=== PATIENT | female | born 1970 ===

== ENCOUNTER 2021-09-17 17:06 | Emergency (ER) | payer OTHER, SELFPAY ==
[2021-09-17 17:12] VITALS: BP 131/87; PULSE 61; RESP 16; TEMP 37.1; O2SAT 98; BMI 26.1
--- NOTE | 2021-09-17 17:33 | XRR_ITS ---
PROCEDURE INFORMATION: Exam: XR Chest Exam date and time: 09/17/2021 5:55 PM Age: 51 years old Clinical indication: Chest wall pain; Additional info: Chest pain TECHNIQUE: Imaging protocol: XR of the chest. Views: 1 view. COMPARISON: No relevant prior studies available. FINDINGS: Lungs: Unremarkable. No consolidation. Pleural spaces: Unremarkable. No pleural effusion. No pneumothorax. Heart/Mediastinum: Unremarkable. No cardiomegaly. Bones/joints: Unremarkable. XR/XR chest 1V portable [id number] IMPRESSION: No acute findings.
--- NOTE | 2021-09-17 17:33 | ECG_ITS ---
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 Measurements Intervals [place] Rate: 58 P: 49 [place]: 159 QRS: 66 QRSD: 133 T: 43 QT: 447 QTc: 441 Interpretive Statements SINUS BRADYCARDIA RIGHT BUNDLE BRANCH BLOCK [120+ ms QRS DURATION, UPRIGHT V1, 40+ ms S IN I/aVL/V4/V5/V6] No previous ECG available for comparison Electronically Signed On 09-17-2021 20:16:05 CDT by Anne Marie Araujo M.D. [id number] f
[2021-09-17] MEDS: ondansetron 2 mg/ML SDV 2 mL 4 MG IVP (17:52)
[2021-09-17] MEDS: sodium chloride 0.9% 1,000 ML 999 ML IV (17:52)
[2021-09-17 18:11] LABS: Add Urine Microscopic? NO; Charge for UA Resulting for Rev
[2021-09-17 18:27] LABS: Basophils # 0.1 10^3/uL (0.0-0.1); Basophils % 0.7 %; Eosinophils # 0.3 10^3/uL (0.0-0.8); Eosinophils % 4.1 %; Hematocrit 36.7 % (37.0-47.0); Hemoglobin 12.6 g/dL (11.5-15.3); Lymphocytes # 4.1 10^3/uL (0.8-4.8); Lymphocytes % 48.9 %; Mean Corpuscular HGB Conc 34.3 g/dL (30.0-36.0); Mean Corpuscular Volume 90.2 fl (81-99); Monocytes # 0.7 10^3/uL (0.2-0.9); Monocytes % 7.8 %; Neutrophils # 3.18 10^3/uL (1.8-7.7); Neutrophils % 38.4 %; Nucleated Red Blood Cells % 0 %; Platelet Count 236 10^3/cmm (130-400); Red Blood Count 4.07 10^6/uL (4.1-5.3); Red Cell Distribution Width 12.4 % (12.1-15.1); White Blood Count 8.3 10^3/uL (4.0-10.0)
[2021-09-17 18:31] LABS: Glucose Urine UA Norm (Normal); Ketones Urine Negative (Negative); Protein Urine Neg (Negative); Urine Appearance Clear (CLEAR); Urine Color Yellow (Yellow); pH Urine 5 (5-7)
[2021-09-17 18:32] LABS: Bilirubin Urine Neg (Negative); Blood Urine Neg (Negative); Leukocyte Esterase Urine Negative (Negative); Nitrate Urine Negative (Negative); Urobilinogen Urine Norm (Negative)
[2021-09-17 18:51] LABS: Troponin(5th) Baseline 6 ng/L (0-10)
[2021-09-17 18:58] LABS: Alanine Aminotransferase 18 U/L (0-33); Albumin Level 4.4 g/dL (3.5-5.2); Alkaline Phosphatase 90 IU/L (35-105); Anion Gap 12.4 (5-19); Aspartate Amino Transferase 19 U/L (0-32); Blood Urea Nitrogen 16 mg/dL (6-20); Carbon Dioxide 25 mmol/L (22-29); Chloride 104 mmol/L (98-107); Globulin 3.2 g/dL (1.3-4.6); Glucose 96 mg/dL (65-115); NT Pro B Type Natriuretic Pept 19 pg/mL (0-125); Osmolality Calculated 287 mOsm/kg (285-295); Potassium 3.4 mmol/L (3.5-5.1); Sodium 138 mmol/L (136-145); Total Bilirubin 0.3 mg/dL (0.15-1.2); Total Protein 7.6 g/dL (6.6-8.7)
[2021-09-17 19:02] LABS: INR 1.07 (0.8-1.2); Partial Thromboplastin Time 29.1 SECONDS (23.9-36.7)
--- NOTE | 2021-09-17 19:33 | ECG_ITS ---
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 Measurements Intervals [place] Rate: 55 P: 51 [place]: 163 QRS: 61 QRSD: 118 T: 38 QT: 461 QTc: 442 Interpretive Statements SINUS BRADYCARDIA INCOMPLETE RIGHT BUNDLE BRANCH BLOCK [90+ ms QRS DURATION, TERMINAL R IN V1/V2, 40+ ms S IN I/aVL/V4/V5/V6] NONSPECIFIC T-WAVE ABNORMALITY Compared to ECG 09/17/2021 17:14:58 Incomplete right bundle-branch block now present T-wave abnormality now present Right bundle-branch block no longer present Electronically Signed On 09-17-2021 20:23:35 CDT by Anne Marie Araujo M.D. [id number]
--- NOTE | 2021-09-17 19:38 | ED_ITS ---
HPI - Chest Pain General: Chief Complaint: Chest Pain Stated Complaint: chest pressure/pain Time Seen by Provider: 09/17/21 17:09 History of Present Illness: 51-year-old female presents emergency department chief complaint of having chest pain and heaviness at work patient does not re call having any known history of any underlying heart issues. She reports she was at work in which she developed chest pressure and her heart beat being out of sorts patient reports is the first time this is ever happened she does not recall any known cardiac issues however reports they do run in her family. Currently the patient reports is not having any chest pain shortness of breath or palpitations. Associated symptoms: Deny abdominal pain, dyspnea, fever(s), nausea or vomiting Review of Systems General: Reports: 10 or more systems reviewed and unremarkable except in HPI and below Const: Denies: fever(s), chills, fatigue or malaise Eyes: Denies: change in vision or blurry vision Card: Reports: chest pain Resp: Denies: dyspnea or productive cough GI: Denies: abdominal pain, nausea or vomiting : Denies: flank pain Musc: Denies: extremity pain or extremity swelling Skin/Breast: Denies: rash or pruritus Neuro: Denies: headache(s) Psych: Denies: anxiety or depression Rui/Lymph: Denies: easy bleeding All/Imm: Denies: urticaria, throat swelling or facial swelling PFSH ED PFSH: Social History Smoking and tobacco status: never smoked Alcohol intake: never Physical Exam Const: COMMON NORMALS: no acute distress, patient oriented x3 and healthy appearing HENMT: COMMON NORMALS: normocephalic and atraumatic HEAD & SCALP: normocephalic and atraumatic Eye: COMMON NORMALS: Equal, round and reactive pupils present and EOMs intact bilaterally PUPIL: Yes Equal, round and reactive pupils present Neck/C-Spine: COMMON NORMALS: full ROM, supple and no JVD Lymph: LYMPHATIC: no lymphadenopathy noted Chest: COMMONS NORMALS: normal inspection of the chest and normal palpation of entire chest wall Resp: COMMON NORMALS: normal respiratory effort, No retractions and clear to auscultation bilaterally EFFORT & INSPECTION: Yes able to speak in complete sentences and Yes symmetric chest movement AUSCULTATION: clear to auscultation bilaterally Cardio: COMMON NORMALS: no JVD, regular rate and regular rhythm RATE: regular rate RHYTHM: regular rhythm GI: COMMON NORMALS: Normal to inspection, nondistended, normoactive bowel sounds present, Soft to palpation and non-tender INSPECTION: Yes normal to inspection PALPATION: Yes Soft to palpation : COMMON NORMALS: Yes no CVA tenderness BLADDER/KIDNEY EXAM: Yes no CVA tenderness Back/Pelvis: COMMON NORMALS: no CVA tenderness Extremity: COMMON NORMALS: normal to inspection and full ROM Neuro: COMMON NORMALS: patient oriented x3, CN's II-XII intact bilaterally, moves all extremities and no focal motor deficits Psych: COMMON NORMALS: mental status grossly normal, Normal thought process present, cooperative and normal affect THOUGHT PROCESS: Normal thought process present Skin: COMMON NORMALS: no rashes or lesions noted GENERAL SKIN EXAM: no rashes or lesions noted Course Vital Signs: Vital signs: Vital Signs Temperature 98.8 F 09/17/21 17:12 Pulse Rate 56 L 09/17/21 19:59 Respiratory Rate 16 09/17/21 19:59 Blood Pressure 128/83 09/17/21 19:59 Pulse Oximetry 98 09/17/21 19:59 MDM - Chest Pain Medical Decision Making Due to the patient's symptoms and condition lab work and imaging will be obtained we will continue to follow. Patient's lab work and imaging came back reassuring patient remained asymptomatic throughout her stay in the emergency department patient was discharged home advised further follow-up with primary care in 2 to 3 days which is advised to return in the interim if any of her symptoms persist or worse. Lab Data : 09/17/21 17:30 09/17/21 17:30 Radiology Impressions Chest X-Ray 09/17/21 17:33 IMPRESSION: No acute findings. Laboratory Results WBC 8.3 10^3/uL (4.0-10.0) 09/17/21 17:30 RBC 4.07 10^6/uL (4.1-5.3) L 09/17/21 17:30 Hgb 12.6 g/dL (11.5-15.3) 09/17/21 17:30 Hct 36.7 % (37.0-47.0) L 09/17/21 17:30 MCV 90.2 fl (81-99) 09/17/21 17:30 MCH 31.0 pg (28.0-34.0) 09/17/21 17: MCHC 34.3 g/dL (30.0-36.0) 09/17/21 17: RDW 12.4 % (12.1-15.1) 09/17/21 17: Plt Count 236 10^3/cmm (130-400) 09/17/21 17: MPV 11.0 fL (7.4-10.4) H 09/17/21 17:30 Neut % (Auto) 38.4 % 09/17/21 17: Lymph % (Auto) 48.9 % 09/17/21 17: Graves % (Auto) 7.8 % 09/17/21 17: Eos % (Auto) 4.1 % 09/17/21 17: Baso % (Auto) 0.7 % 09/17/21 17: Neut # (Auto) 3.18 10^3/uL (1.8-7.7) 09/17/21 17: Lymph # (Auto) 4.1 10^3/uL (0.8-4.8) 09/17/21 17:30 Graves # (Auto) 0.7 10^3/uL (0.2-0.9) 09/17/21 17: Eos # (Auto) 0.3 10^3/uL (0.0-0.8) 09/17/21 17: Baso # (Auto) 0.1 10^3/uL (0.0-0.1) 09/17/21: Nucleated RBC % (auto) 0 % 09/17/21 17: Nucleated RBCs # 0.0 /100WBC 09/17/21 17: PT 14.20 SECONDS (12.1-14.9) 09/17/21: INR 1.07 (0.8-1.2) 09/17/21 17: APTT 29.1 SECONDS (23.9-36.7) 09/17/21 17:30 Sodium 138 mmol/L (136-145) 09/17/21 17: Potassium 3.4 mmol/L (3.5-5.1) L 09/17/21:30 Chloride 104 mmol/L (98-107) 09/17/21 17:30 Carbon Dioxide 25 mmol/L (22-29) 09/17/21 17:30 Anion Gap 12.4 (5-19) 09/17/21 17:30 BUN 16 mg/dL (6-20) 09/17/21 17:30 Creatinine 0.8 mg/dL (0.5-0.9) 09/17/21 17:30 GFR Calculation 75.0 mL/min (90-130) L 09/17/21 17:30 Glucose 96 mg/dL (65-115) 09/17/21 17:30 Calculated Osmolality 287 mOsm/kg (285-295) 09/17/21 17:30 Calcium 9.0 mg/dL (8.5-10.5) 09/17/21 17:30 Total Bilirubin 0.3 mg/dL (0.15-1.2) 09/17/21 17:30 AST 19 U/L (0-32) 09/17/21 17:30 ALT 18 U/L (0-33) 09/17/21 17:30 Alkaline Phosphatase 90 IU/L (35-105) 09/17/21 17:30 Troponin T Baseline 6 ng/L (0-10) 09/17/21 17:30 Troponin T 120 Minute 6.00 ng/L (0-10) 09/17/21 19:16 Delta Troponin T 0 ABS# (0-10) 09/17/21 19:16 NT-Pro-B Natriuret Pep 19 pg/mL (0-125) 09/17/21 17:30 Total Protein 7.6 g/dL (6.6-8.7) 09/17/21 17:30 Albumin 4.4 g/dL (3.5-5.2) 09/17/21 17:30 Globulin 3.2 g/dL (1.3-4.6) 09/17/21 17:30 Urine Color Yellow (Yellow) 09/17/21 17:55 Urine Appearance Clear (CLEAR) 09/17/21 17:55 Urine pH 5 (5-7) 09/17/21 17:55 Ur Specific [place] 1.010 (1.005-1.030) 09/17/21 17:55 Urine Protein Neg (Negative) 09/17/21 17:55 Urine Glucose (UA) Norm (Normal) 09/17/21 17:55 Urine Ketones Negative (Negative) 09/17/21 17:55 Urine Blood Neg (Negative) 09/17/21 17:55 Urine Nitrate Negative (Negative) 09/17/21 17:55 Urine Bilirubin Neg (Negative) 09/17/21 17:55 Urine Urobilinogen Norm mg/dL (Negative) 09/17/21 17:55 Ur Leukocyte Esterase Negative (Negative) 09/17/21 17:55 Discharge Plan Discharge Patient Disposition: Home Clinical Impression: Atypical chest pain Condition: Stable Prescriptions: No Action sulfamethoxazole-trimethoprim [Bactrim DS] 800-160 mg tablet 1 tab PO BID 7 Days Qty: 14 0RF Discharge Orders: Discharge ED (Routine); Ordered 09/17/21 Ordered By: Henry Izaguirre Referrals: Serafin Harrington DO [Staff Physician] - 4-7 days Discharge Diet: Advance as tolerated Discharge Activity: Resume usual activity Patient Instructions: Angina (ED), Chest Pain (ED) Activity Restrictions/Additional Instructions: Follow-up with your primary care doctor in 3 to 5 days, please return the interim if any of her symptoms persist or worse. Coding Level of Care Code ED Rubber Block Layer for Chag Fwd Exam Comprehensive
[2021-09-17 19:53] LABS: Troponin 5 2HR Delta 0 ABS# (0-10)
[2021-09-17 19:59] VITALS: BP 128/83; PULSE 56; RESP 16; O2SAT 98
[2021-09-17 20:23] VITALS: BP 128/83; PULSE 56; RESP 16; O2SAT 98
== END 2021-09-17 20:29 | disposition home or self-care (01) ==
PROVIDERS: Emergency Provider Emergency Medicine
DX: R07.89 Other chest pain (principal)
CPT/HCPCS: 71045; 80053; 81003; 83880; 84484; 85025; 85610; 85730; 93005; 96361; 96374; 99285; J2405; J7030

== ENCOUNTER 2021-10-02 09:07 | Emergency (ER) | payer OTHER, SELFPAY ==
--- NOTE | 2021-10-02 09:09 | ECG_ITS ---
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 Measurements Intervals [place] Rate: 67 P: 52 [place]: 162 QRS: 64 QRSD: 132 T: 33 QT: 415 QTc: 441 Interpretive Statements SINUS RHYTHM RIGHT BUNDLE BRANCH BLOCK [120+ ms QRS DURATION, UPRIGHT V1, 40+ ms S IN I/aVL/V4/V5/V6] Compared to ECG 09/17/2021 19:34:18 Right bundle-branch block now present Sinus bradycardia no longer present Incomplete right bundle-branch block no longer present T-wave abnormality no longer present Electronically Signed On 10-02-2021 17:13:11 CDT by Gasper Iqbal M.D. [email or web address]/[id number] f
--- NOTE | 2021-10-02 09:09 | XRR_ITS ---
PROCEDURE INFORMATION: Exam: XR Chest Exam date and time: 10/02/2021 9:26 AM Age: 51 years old Clinical indication: Pain; Angina pectoris; Additional info: Chest pain TECHNIQUE: Imaging protocol: XR of the chest. Views: 1 view. COMPARISON: CR (CHEST, ) 09/17/2021 5:55 PM FINDINGS: Lungs: No focal airspace disease. Pleural spaces: Unremarkable. No pleural effusion. No pneumothorax. Heart/Mediastinum: Cardiomediastinal silhouette is within normal limits. Bones/joints: Unremarkable. XR/XR chest 1V portable [id number] IMPRESSION: No acute cardiopulmonary abnormality.
--- NOTE | 2021-10-02 09:19 | W.ED.CHESTPA ---
Documented by User: HUMPHREY Prado 10/02/21 12:17 HPI - Chest Pain General: Chief Complaint: Chest Pain Stated Complaint: CHEST PAIN Time Seen by Provider: 10/02/21 09:09 Source: patient and EMS Mode of arrival: EMS Limitations: no limitations History of Present Illness: Patient is a nice 51-year-old female presents to ED today via EMS for evaluation of chest pain. Patient states chest pain began yesterday evening had was described as mild. She states while at work today (patient works at [employer]) her chest pain began worsening. Patient tells me she felt dizzy and lightheaded and had a presyncopal episode. Patient was also having some shortness of breath. EMS states they gave the patient 3 nitro in route and aspirin that slightly helped with her discomfort. They did mention there seemed to be a reproducible component to her pain during palpation and inspiration. During my initial assessment patient states she is no longer having chest pain or shortness of breath. Patient states she was seen in our ED on 09/17 for similar symptoms. She does states she followed up at [facility] and at some point was prescribed nitroglycerin. She has been scheduled for an outpatient stress test/echo. Patient denies any previous cardiac or pulmonary history. She denies swelling or pain to her lower extremities. No orthopnea or PND. She is not currently complaining of palpitations or dizziness. MD complaint: chest pain Onset (ago): hour(s) Timing of current episode: episodic and now resolved Prior episodes: Yes Pain location: substernal Quality: tightness Exacerbating factors: nothing Associated symptoms: Reports dyspnea (resolved now); Deny abdominal pain, fever(s), nausea, palpitations, syncope or vomiting Treatment prior to arrival: aspirin and nitroglycerin Risk Factors: Coronary artery disease risk factors: none Thoracic aortic dissection risk factors: none Related Data: On Oral Contraceptives: No Review of Systems Const: Denies: fever(s), chills or body aches Eyes: Denies: change in vision or blurry vision Card: Reports: chest pain (resolved now), lightheadedness (resolved now) and pre-syncope; Denies: palpitations, irregular heart rhythm, edema, swelling of feet/ankles, syncope, dyspnea on exertion, orthopnea, leg pain with exertion or acrocyanosis Resp: Reports: dyspnea (resolved now) and pain on inspiration; Denies: productive cough, non-productive cough, wheezing, hemoptysis or chest congestion GI: Denies: abdominal pain, nausea, vomiting, heartburn or diarrhea : Denies: flank pain or dysuria Musc: Denies: neck pain, back pain, extremity pain, extremity swelling, joint pain, joint swelling or joint redness Skin/Breast: Denies: rash Neuro: Denies: headache(s), numbness in extremities, weakness in extremities or sensory changes PFSH ED PFSH: Social History Smoking and tobacco status: never smoked Alcohol intake: never Physical Exam Const: COMMON NORMALS: no acute distress, patient oriented x3, no limitations, alert and well nourished GENERAL APPEARANCE: cooperative HENMT: COMMON NORMALS: normocephalic and atraumatic HEAD & SCALP: normal to inspection, normocephalic and atraumatic Chest: COMMONS NORMALS: normal inspection of the chest and normal palpation of entire chest wall Resp: COMMON NORMALS: normal respiratory effort and clear to auscultation bilaterally AUSCULTATION: clear to auscultation bilaterally Cardio: COMMON NORMALS: regular rate and regular rhythm RATE: regular rate RHYTHM: regular rhythm GI: COMMON NORMALS: Normal to inspection, nondistended, normoactive bowel sounds present, Soft to palpation, non-tender, No hepatosplenomegaly present and no masses PALPATION: Yes Soft to palpation and Yes No hepatosplenomegaly present Back/Pelvis: COMMON NORMALS: thoracic and lumbar spine normal to inspection, no thoracic nor lumbar tenderness and thoraco-lumbar ROM normal Extremity: COMMON NORMALS: normal to inspection, capillary refill normal, no clubbing, cyanosis or edema, no calf tenderness and no pedal edema GENERAL: Yes normal exam except as noted Neuro: STANISLAW COMA SCALE: document GCS findings Stanislaw coma scale eye opening: Spontaneous [place] coma scale verbal response: Orientated Stanislaw coma scale motor response: Obey commands [place] coma scale total score: 15 COMMON NORMALS: patient oriented x3, moves all extremities, no focal motor deficits and no sensory deficits noted SENSORIUM/ORIENTATION: Yes alert Skin: COMMON NORMALS: no rashes or lesions noted GENERAL SKIN EXAM: no rashes or lesions noted Course Vital Signs: Vital signs: Vital Signs Temperature 98.1 F 10/02/21 09:20 Pulse Rate 62 10/02/21 12:15 Respiratory Rate 14 10/02/21 12:15 Blood Pressure 114/76 10/02/21 12:15 Pulse Oximetry 100 10/02/21 12:15 MDM - Chest Pain Medical Decision Making Patient states chest pain has resolved upon arrival to the ED. She has remained asymptomatic throughout her stay. Initial and repeat EKGs show no ischemic changes. There are no changes on EKGs today when compared to the EKG is performed on 09/17. Vital signs are stable. Initial troponin was 6 with a delta of 0. Patient has an outpatient stress test and echocardiogram scheduled for next week further evaluation of her chest pains. At this time her HEART score is roughly 3. She is stable for DC from the ED at this time with strict return precautions. Lab Data : 10/02/21 09:16 10/02/21 09:16 Radiology Impressions Chest X-Ray 10/02/21 09:09 IMPRESSION: No acute cardiopulmonary abnormality. Laboratory Results WBC 9.8 10^3/uL (4.0-10.0) 10/02/21 09:16 RBC 4.39 10^6/uL (4.1-5.3) 10/02/21 09:16 Hgb 13.8 g/dL (11.5-15.3) 10/02/21 09:16 Hct 39.5 % (37.0-47.0) 10/02/21 09:16 MCV 90.0 fl (81-99) 10/02/21 09:16 MCH 31.4 pg (28.0-34.0) 10/02/21 09:16 MCHC 34.9 g/dL (30.0-36.0) 10/02/21 09:16 RDW 12.3 % (12.1-15.1) 10/02/21 09:16 Plt Count 250 10^3/cmm (130-400) 10/02/21 09:16 MPV 10.2 fL (7.4-10.4) 10/02/21 09:16 Neut % (Auto) 45.6 % 10/02/21 09:16 Lymph % (Auto) 38.6 % 10/02/21 09:16 [place] % (Auto) 9.6 % 10/02/21 09:16 Eos % (Auto) 4.9 % 10/02/21 09:16 Baso % (Auto) 0.9 % 10/02/21 09:16 Neut # (Auto) 4.44 10^3/uL (1.8-7.7) 10/02/21 09:16 Lymph # (Auto) 3.8 10^3/uL (0.8-4.8) 10/02/21 09:16 [place] # (Auto) 0.9 10^3/uL (0.2-0.9) 10/02/21 09:16 Eos # (Auto) 0.5 10^3/uL (0.0-0.8) 10/02/21 09:16 Baso # (Auto) 0.1 10^3/uL (0.0-0.1) 10/02/21 09:16 Nucleated RBC % (auto) 0 % 10/02/21 09:16 Nucleated RBCs # 0.0 /100WBC 10/02/21 09:16 Sodium 141 mmol/L (136-145) 10/02/21 09:16 Potassium 3.3 mmol/L (3.5-5.1) L 10/02/21 09:16 Chloride 105 mmol/L (98-107) 10/02/21 09:16 Carbon Dioxide 23 mmol/L (22-29) 10/02/21 09:16 Anion Gap 16.3 (5-19) 10/02/21 09:16 BUN 16 mg/dL (6-20) 10/02/21 09:16 Creatinine 0.7 mg/dL (0.5-0.9) 10/02/21 09:16 GFR Calculation 87.5 mL/min (90-130) L 10/02/21 09:16 Glucose 95 mg/dL (65-115) 10/02/21 09:16 Calculated Osmolality 293 mOsm/kg (285-295) 10/02/21 09:16 Calcium 9.3 mg/dL (8.5-10.5) 10/02/21 09:16 Total Bilirubin 0.3 mg/dL (0.15-1.2) 10/02/21 09:16 AST 17 U/L (0-32) 10/02/21 09:16 ALT 24 U/L (0-33) 10/02/21 09:16 Alkaline Phosphatase 91 IU/L (35-105) 10/02/21 09:16 Troponin T Baseline 6 ng/L (0-10) 10/02/21 09:16 Troponin T 120 Minute 6.00 ng/L (0-10) 10/02/21 11:20 Delta Troponin T 0 ABS# (0-10) 10/02/21 11:20 Total Protein 7.7 g/dL (6.6-8.7) 10/02/21 09:16 Albumin 4.3 g/dL (3.5-5.2) 10/02/21 09:16 Globulin 3.4 g/dL (1.3-4.6) 10/02/21 09:16 EKG Data EKG 1: EKG interpretation date: 10/02/21 EKG interpretation time: 09:15 Prior EKG tracings: available for review Interpretation: Sinus rhythm Rate 67 Some degree of a RBBB present There are no acute changes when compared to 2 EKGs performed on her last ED visit on 09/17 Discharge Plan Discharge Patient Disposition: Home Clinical Impression: Chest pain Condition: Stable Prescriptions: No Action Nitrostat 0.4 mg Tablet, Sublingual 0.4 mg SUBLINGUAL Q5M PRN (Reason: Chest Pain) 0RF Rx Instructions: do not exceed 3 doses per episode Glucosamine Chondroitin 550-30-1 mg Capsule 1 cap PO DAILY 0RF ashwagandha root extract 300 mg Capsule 300 mg PO DAILY 0RF Vitamin B-12 1 tab PO DAILY 0RF Discharge Orders: Discharge ED (Routine); Ordered 10/02/21 Ordered By: Caroline Singer Activity Restrictions/Additional Instructions: As we discussed patient has an outpatient stress test and echocardiogram scheduled for October 06 and . You have been provided times for these. Central scheduling should also contact you in regards to these appointments. She needs to return to the emergency department for worsening or severe chest discomfort, passing out episodes, severe dizziness, severe shortness of breath or difficulty breathing, or any other concerns she may have. Coding Level of Care Code ED Boiler Service Technician for Chg Fwd Exam Comprehensive Documented by User: Luis Fernando Alcaraz DO 10/02/21 12:56 HPI - Chest Pain General: Chief Complaint: Chest Pain Stated Complaint: CHEST PAIN Time Seen by Provider: 10/02/21 09:09 [facility] ED PFSH: Social History Smoking and tobacco status: never smoked Alcohol intake: never Physical Exam Neuro: STANISLAW COMA SCALE: document GCS findings [place] coma scale total score: 15 Course Vital Signs: Vital signs: Vital Signs Temperature 98.1 F 10/02/21 09:20 Pulse Rate 62 10/02/21 12:15 Respiratory Rate 14 10/02/21 12:15 Blood Pressure 114/76 10/02/21 12:15 Pulse Oximetry 100 10/02/21 12:15 MDM - Chest Pain Medical Decision Making Patient states chest pain has resolved upon arrival to the ED. She has remained asymptomatic throughout her stay. Initial and repeat EKGs show no ischemic changes. There are no changes on EKGs today when compared to the EKG is performed on 09/17. Vital signs are stable. Initial troponin was 6 with a delta of 0. Patient has an outpatient stress test and echocardiogram scheduled for next week further evaluation of her chest pains. At this time her HEART score is roughly 3. She is stable for DC from the ED at this time with strict return precautions. Chart reviewed and patient discussed with midlevel. Agree with assessment and plan. Lab Data : 10/02/21 09:16 10/02/21 09:16 Radiology Impressions Chest X-Ray 10/02/21 09:09 IMPRESSION: No acute cardiopulmonary abnormality. Laboratory Results WBC 9.8 10^3/uL (4.0-10.0) 10/02/21 09:16 RBC 4.39 10^6/uL (4.1-5.3) 10/02/21 09:16 Hgb 13.8 g/dL (11.5-15.3) 10/02/21 09:16 Hct 39.5 % (37.0-47.0) 10/02/21 09:16 MCV 90.0 fl (81-99) 10/02/21 09:16 MCH 31.4 pg (28.0-34.0) 10/02/21 09:16 MCHC 34.9 g/dL (30.0-36.0) 10/02/21 09:16 RDW 12.3 % (12.1-15.1) 10/02/21 09:16 Plt Count 250 10^3/cmm (130-400) 10/02/21 09:16 MPV 10.2 fL (7.4-10.4) 10/02/21 09:16 Neut % (Auto) 45.6 % 10/02/21 09:16 Lymph % (Auto) 38.6 % 10/02/21 09:16 [place] % (Auto) 9.6 % 10/02/21 09:16 Eos % (Auto) 4.9 % 10/02/21 09:16 Baso % (Auto) 0.9 % 10/02/21 09:16 Neut # (Auto) 4.44 10^3/uL (1.8-7.7) 10/02/21 09:16 Lymph # (Auto) 3.8 10^3/uL (0.8-4.8) 10/02/21 09:16 [place] # (Auto) 0.9 10^3/uL (0.2-0.9) 10/02/21 09:16 Eos # (Auto) 0.5 10^3/uL (0.0-0.8) 10/02/21 09:16 Baso # (Auto) 0.1 10^3/uL (0.0-0.1) 10/02/21 09:16 Nucleated RBC % (auto) 0 % 10/02/21 09:16 Nucleated RBCs # 0.0 /100WBC 10/02/21 09:16 Sodium 141 mmol/L (136-145) 10/02/21 09:16 Potassium 3.3 mmol/L (3.5-5.1) L 10/02/21 09:16 Chloride 105 mmol/L (98-107) 10/02/21 09:16 Carbon Dioxide 23 mmol/L (22-29) 10/02/21 09:16 Anion Gap 16.3 (5-19) 10/02/21 09:16 BUN 16 mg/dL (6-20) 10/02/21 09:16 Creatinine 0.7 mg/dL (0.5-0.9) 10/02/21 09:16 GFR Calculation 87.5 mL/min (90-130) L 10/02/21 09:16 Glucose 95 mg/dL (65-115) 10/02/21 09:16 Calculated Osmolality 293 mOsm/kg (285-295) 10/02/21 09:16 Calcium 9.3 mg/dL (8.5-10.5) 10/02/21 09:16 Total Bilirubin 0.3 mg/dL (0.15-1.2) 10/02/21 09:16 AST 17 U/L (0-32) 10/02/21 09:16 ALT 24 U/L (0-33) 10/02/21 09:16 Alkaline Phosphatase 91 IU/L (35-105) 10/02/21 09:16 Troponin T Baseline 6 ng/L (0-10) 10/02/21 09:16 Troponin T 120 Minute 6.00 ng/L (0-10) 10/02/21 11:20 Delta Troponin T 0 ABS# (0-10) 10/02/21 11:20 Total Protein 7.7 g/dL (6.6-8.7) 10/02/21 09:16 Albumin 4.3 g/dL (3.5-5.2) 10/02/21 09:16 Globulin 3.4 g/dL (1.3-4.6) 10/02/21 09:16 Discharge Plan Discharge Patient Disposition: Home Clinical Impression: Chest pain Condition: Stable Prescriptions: No Action Nitrostat 0.4 mg Tablet, Sublingual 0.4 mg SUBLINGUAL Q5M PRN (Reason: Chest Pain) 0RF Rx Instructions: do not exceed 3 doses per episode Glucosamine Chondroitin 550-30-1 mg Capsule 1 cap PO DAILY 0RF ashwagandha root extract 300 mg Capsule 300 mg PO DAILY 0RF Vitamin B-12 1 tab PO DAILY 0RF Discharge Orders: Discharge ED (Routine); Ordered 10/02/21 Ordered By: Caroline Singer Activity Restrictions/Additional Instructions: As we discussed patient has an outpatient stress test and echocardiogram scheduled for October 06 and . You have been provided times for these. Central scheduling should also contact you in regards to these appointments. She needs to return to the emergency department for worsening or severe chest discomfort, passing out episodes, severe dizziness, severe shortness of breath or difficulty breathing, or any other concerns she may have. Coding Level of Care Code ED Boiler Service Technician for Chg Fwd Exam Comprehensive
[2021-10-02 09:20] VITALS: BP 167/98; PULSE 64; RESP 12; TEMP 36.7; O2SAT 100; BMI 27.8
[2021-10-02 09:29] VITALS: BP 132/95; PULSE 64; RESP 13; O2SAT 100
[2021-10-02 09:32] LABS: Basophils # 0.1 10^3/uL (0.0-0.1); Basophils % 0.9 %; Eosinophils # 0.5 10^3/uL (0.0-0.8); Eosinophils % 4.9 %; Hematocrit 39.5 % (37.0-47.0); Hemoglobin 13.8 g/dL (11.5-15.3); Lymphocytes # 3.8 10^3/uL (0.8-4.8); Lymphocytes % 38.6 %; Mean Corpuscular HGB Conc 34.9 g/dL (30.0-36.0); Mean Corpuscular Hemoglobin 31.4 pg (28.0-34.0); Mean Platelet Volume 10.2 fL (7.4-10.4); Monocytes # 0.9 10^3/uL (0.2-0.9); Monocytes % 9.6 %; Neutrophils # 4.44 10^3/uL (1.8-7.7); Neutrophils % 45.6 %; Nucleated Red Blood Cells % 0 %; Platelet Count 250 10^3/cmm (130-400); Red Blood Count 4.39 10^6/uL (4.1-5.3); Red Cell Distribution Width 12.3 % (12.1-15.1); White Blood Count 9.8 10^3/uL (4.0-10.0)
[2021-10-02 09:59] VITALS: BP 170/97; PULSE 61; RESP 13; O2SAT 100
[2021-10-02 10:01] LABS: Alanine Aminotransferase 24 U/L (0-33); Albumin Level 4.3 g/dL (3.5-5.2); Alkaline Phosphatase 91 IU/L (35-105); Anion Gap 16.3 (5-19); Aspartate Amino Transferase 17 U/L (0-32); Blood Urea Nitrogen 16 mg/dL (6-20); Calcium 9.3 mg/dL (8.5-10.5); Carbon Dioxide 23 mmol/L (22-29); Chloride 105 mmol/L (98-107); Creatinine Clr Calc Pharmacy 87.9266; Globulin 3.4 g/dL (1.3-4.6); Glomerular Filtration Rate 87.5 mL/min (90-130); Glucose 95 mg/dL (65-115); Osmolality Calculated 293 mOsm/kg (285-295); Potassium 3.3 mmol/L (3.5-5.1); Sodium 141 mmol/L (136-145); Total Bilirubin 0.3 mg/dL (0.15-1.2); Total Protein 7.7 g/dL (6.6-8.7); Troponin(5th) Baseline 6 ng/L (0-10)
[2021-10-02 10:29] VITALS: BP 130/83; PULSE 57; RESP 12; O2SAT 99
--- NOTE | 2021-10-02 11:09 | ECG_ITS ---
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 Measurements Intervals [place] Rate: 57 P: 53 WV: 167 QRS: 62 QRSD: 120 T: 33 QT: 452 QTc: 441 Interpretive Statements SINUS BRADYCARDIA RIGHT BUNDLE BRANCH BLOCK [120+ ms QRS DURATION, UPRIGHT V1, 40+ ms S IN I/aVL/V4/V5/V6] Compared to ECG 09/17/2021 19:34:18 Right bundle-branch block now present Incomplete right bundle-branch block no longer present T-wave abnormality no longer present Electronically Signed On 10-02-2021 17:14:49 CDT by Gasper Iqbal M.D. [email or web address]/[id number]
[2021-10-02 12:14] LABS: Troponin 5 2HR Delta 0 ABS# (0-10)
[2021-10-02 12:15] VITALS: BP 114/76; PULSE 62; RESP 14; O2SAT 100
== END 2021-10-02 12:18 | disposition home or self-care (01) ==
PROVIDERS: Emergency Provider Physician Assistant; PCP Nurse Practitioner Family
DX: R07.9 Chest pain, unspecified (principal)
CPT/HCPCS: 36415; 71045; 80053; 84484; 85025; 93005

== ENCOUNTER 2021-10-06 11:49 | Outpatient (CLI) | payer OTHER, SELFPAY ==
--- NOTE | 2021-10-06 12:02 | USCV_ITS ---
Rupinder Pace Age: 51 Gender: F : 1970 Exam Date: 10/06/2021 12:43 Ordering Phys: Emma Blanca Technologist: Ramos Noriega Exam Location: [facility] Indication: ANGINA BP: 114 / 76 HR: 57 Rhythm: Sinus Technical Quality: Adequate MEASUREMENTS (Male / Female) Normal Values 2D ECHO LV Diastolic Diameter PLAX 3.8 cm 4.2 - 5.9 / 3.9 - 5.3 cm LV Systolic Diameter PLAX 2.4 cm IVS Diastolic Thickness 0.9 cm 0.6 - 1.0 / 0.6 - 0.9 cm IVS Systolic Thickness 1.1 cm LVPW Diastolic Thickness 1.2 cm 0.6 - 1.0 / 0.6 - 0.9 cm LVPW Systolic Thickness 1.3 cm LVOT Diameter 2.0 cm LV Ejection Fraction 2D Teich 68.7 % LV Ejection Fraction MOD 2C 54.5 % LV Ejection Fraction 2C AL 55.4 % LA Diameter 3.0 cm LA Width 2.7 cm LA Height 4.3 cm RA Width 3.2 cm RA Height 4.1 cm Aorta at Sinotubular Diameter 2.2 cm IVC Diameter 1.5 cm M-MODE Aortic Annulus Diameter 2.5 cm LA Ao Ratio MM 1.2 MV E Point Septal Separation 0.6 cm DOPPLER AV Peak Velocity 134.5 cm/s LVOT Peak Velocity 100.0 cm/s AV Area Cont Eq vti 2.3 cm squared AV Area Cont Eq pk 2.3 cm squared MV Peak Velocity 108.0 cm/s MV Area PHT 3.9 cm squared Mitral E to A Ratio 1.0 MV E' Velocity 41.5 cm/s Mitral E to MV E' Ratio 8.3 Mitral E to LV E' Lateral Ratio 7.1 Mitral E to LV E' Septal Ratio 9.9 TR Peak Velocity 207.3 cm/s TR Peak Gradient 17.2 mmHg TR Mean Velocity 159.4 cm/s TR Mean Gradient 10.6 mmHg TR Velocity Time Integral 57.8 cm Right Atrial Pressure 3.0 mmHg Pulmonary Artery Systolic Pressu 20.2 mmHg RV Acceleration Time 0.1 s RV Ejection Time 0.2 s RV AcT/ET 0.3 FINDINGS Left Ventricle Normal left ventricular size. LV systolic function is normal with EF of 55-60%. No regional wall motion abnormalities. Diastolic function is normal Right Ventricle The right ventricle is normal in size and function. Right Atrium The right atrium is normal in size. Left Atrium The left atrium is normal in size. Mitral Valve Structurally normal mitral valve without significant stenosis or prolapse. There is trace mitral regurgitation. Aortic Valve Structurally normal aortic valve without significant sclerosis or stenosis. There is no aortic regurgitation. Tricuspid Valve Structurally normal tricuspid valve without significant stenosis. Mild tricuspid regurgitation. Pulmonary artery systolic pressure is normal. Pulmonic Valve Not well visualized Pericardium Normal pericardium without effusion. Aorta Normal ascending aorta dimension. IVC CONCLUSIONS LV systolic function is normal with EF of 55-60% Diastolic function is normal Trace mitral regurgitation Mild tricuspid regurgitation No comparison studies are available Jah Persaud MD (Electronically Signed) Final Date: 16 October 2021 09:38 S
== END 2021-10-06 11:50 | disposition home or self-care (01) ==
PROVIDERS: PCP Nurse Practitioner Family; Visit Provider Physician Assistant
DX: I45.10 Unspecified right bundle-branch block (principal)
CPT/HCPCS: 93306

== ENCOUNTER 2021-10-07 10:12 | Outpatient (CLI) | payer OTHER, SELFPAY ==
[2021-10-07 10:53] VITALS: BMI 26.1
--- NOTE | 2021-10-07 10:57 | ECG_ITS ---
[facility] Test Date: 2021-10-07 Pat Name: Rupinder Pace Department: Room: Gender: Female Sales Operations Consultant: Apple Nava : 1970 Requested By: Emma Slade Order Number: [id number] Rodriguez MD: Anne Marie Araujo M.D. Interpretive Statements NAME OF STUDY: EXERCISE SESTAMIBI STRESS TEST INDICATION: Angina Baseline blood pressure of 112/83 mm Hg, heart rate of 70 beats per minute and oxygen saturation of 97%. EKG showed normal sinus rhythm, right axis deviation. Right bundle branch block. Nonspecific ST depression. The patient exercised for 7 minutes on a standard Jw protocol. Patient attained a maximum heart rate of 151 beats per minute(90% of the maximum predicted heart rate) with a blood pressure at the peak exercise of 140/68 mm Hg. The EKG at the peak exercise revealed sinus tachycardia with no significant ST-T wave changes. Patient did not have any chest pain or any significant arrhythmis with the exercise. The study was terminated due to maximal effort. During the recovery phase, there were no new changes. Biphasic T waves/T wave inversion noted in V3 to V6 in late recovery. Blood pressure at the end of the recovery phase was 121/75 mm Hg with a heart rate of 77 beats per minute and oxygen saturation 99%. CONCLUSION: 1. Normal EKG response to treadmill exercise. 2. No exercise-induced chest pain or cardiac arrhythmia 3. Good exercise tolerance, attained a maximum of 10.2 METs. Maximum VO2 of 35.7 mL/kg/min. 4. Baseline normal blood pressure with normal response to exercise. 5. Perfusion scan will be documented separately. Electronically Signed On 10-08-2021 16:44:09 CDT by Anne Marie Araujo M.D. [id number]
--- NOTE | 2021-10-07 10:57 | NMCV_ITS ---
NM chayo perf SPECT r/s* [id number] Rupinder Pace Age: 51 Gender: F : 1970 Exam Date: 10/07/2021 11:26 Ordering Phys: Emma Blanca Technologist: TALIA Pacheco Exam Location: [facility] Indications: ANGINA PECTORIS STRESS TEST Please see separate stress test report in Ephiphany for full findings IMAGE PROTOCOL Rest/Stress 1 Radiopharmaceutical Dose (mCi) Administration Site Administered by Rest: Tc-99m 10.9 IV TALIA Diamond Sestamibi Stress:Tc-99m 32.7 IV TALIA Pacheco Sestamileonard Rest: 07-Oct-2021 60 Discovery 630 Stress: 07-Oct-2021 15 Discovery 630 Radiopharmaceutical was injected at 85 % maximum heart rate. Images obtained in supine and prone position. SPECT RESULTS Technical Quality: Excellent Raw Data Analysis: Normal Image Corrections: No attenuation or motion correction applied Summed Stress Score: 0 Summed Rest Score: 0 Summed Difference Score: 0 PERFUSION FINDINGS SPECT images demonstrate homogeneous tracer distribution throughout the myocardium. FUNCTIONAL RESULTS (calculated via Gated SPECT) Stress Image LV EF (%): 72 Stress EDV (mL):68 TID: 0.91 Stress ESV (mL):19 FUNCTIONAL FINDINGS: The left ventricle is normal in size. Transient Ischemia Dilatation of 0.91. There is normal left ventricular systolic function. The left ventricular ejection fraction is normal with a value of 72%. There is normal left ventricular wall thickening with no regional wall motion abnormality. IMPRESSIONS 1. Myocardial perfusion imaging is normal. 2. Overall left ventricular systolic function is normal without regional wall motion abnormalities. LVEF=72%. 3. Good exercise tolerance with no ischemic EKG changes. Refer to separate report for details. 4. No prior similar studies to compare. Anne Marie Araujo MD (Electronically Signed) Final Date: 08 October 2021 16:48 S
[2021-10-07 13:05] VITALS: BP 121/75; PULSE 77
== END 2021-10-07 10:13 | disposition home or self-care (01) ==
PROVIDERS: PCP Physician Assistant; Visit Provider Physician Assistant
DX: I45.10 Unspecified right bundle-branch block (principal)
CPT/HCPCS: 78452; 93017; A9500

== ENCOUNTER 2022-08-14 11:38 | Outpatient (CLI) | payer OTHER, SELFPAY ==
--- NOTE | 2022-08-14 11:47 | MR_ITS ---
WS: [id number] MRI BRAIN WITH HIGH-RESOLUTION IMAGING THROUGH THE INTERNAL AUDITORY CANALS WITHOUT AND WITH CONTRAST HISTORY: Sensorineural hearing loss, right-sided hearing loss. COMPARISON: None available. TECHNIQUE: Multiplanar, multisequence imaging is performed through the brain. Additional 3 mm imaging performed in multiple planes through the internal auditory canal. Postcontrast imaging with 16 ml's of MultiHance. No acute intracranial hemorrhage, midline shift, edema or mass effect. No acute infarct. There are very few scattered subcortical T2 and FLAIR signal hyperintensities which are nonspecific. No mass effect. No hemorrhage. Ventricles and extra-axial spaces are normal. No inferior displacement of cerebellar tonsils. Clivus and pituitary gland are normal. Internal and external auditory canals: Unremarkable. No enhancement along the cranial nerves. Cranial nerves VII and VIII complexes: Unremarkable. No enhancement or mass. Cerebellopontine angles: Normal. Paranasal sinuses: Normal. Mastoid air cells: Normal. Calvarium and scalp: Normal. Visualized [place] of Feng and dural venous sinuses demonstrate no abnormality. MR/MR iac's wo/w con* [id number] IMPRESSION: 1. No signal abnormality or enhancement along the internal auditory canals. 2. Very minimal small vessel ischemic type changes in the subcortical white ma tter. 3. No enhancing masses. No acute infarct.
[2022-08-14] MEDS: gadobenate dimeglumine 20 mL vial IV (13:08)
== END 2022-08-14 11:39 | disposition home or self-care (01) ==
LOC: RAD 11:42
PROVIDERS: PCP Physician Assistant; Visit Provider Specialist
DX: H90.41 Sensorineural hearing loss, unilateral, right ear, with unrestricted hearing on the contralateral side (principal)
CPT/HCPCS: 70553; A9577